=== PATIENT | female | born 1965 | race Caucasian/White ===

== ENCOUNTER 2017-06-08 16:09 | Inpatient (IN) | payer BC, OTHER ==
[~2017-06-08] VITALS: Ht 170.2 cm; Wt 58.1 kg
[2017-06-08] MEDS ORDERED: SODIUM CHLORIDE 0.9% 1000ML 1,000 ML IV ONE (16:22)
[2017-06-08] MEDS ORDERED: SODIUM CHLORIDE 0.9% 1000ML 1,000 ML IV STA (16:22)
--- NOTE | 2017-06-08 16:31 | EMERGENCY ROOM VISIT NOTE ---
History Report prepared by Paola: Cyril Yeboah Under the Supervision of: Dr. Sanchez Mcintyre M.D. First contact with patient: 16:12 Stated Complaint: MENTAL STATUS CHANGE History of Present Illness The patient is a 52 year old female with a history of mild anxiety and depression who presents to the Emergency Room via ambulance with complaints of worsening episodes of fevers that started yesterday. She says that she started coughing up green phlegm 2 days ago with burning urination, so she was seen in her primary care clinic and was started on Bactrim. The patient adds that she finished a round of a different antibiotic 5 days ago. She does note that for the past couple weeks, she has been having a sinus infection with occasional fevers. The patient states that she does not think that the Bactrim agrees with her, although the burning urination dissipated. She says that yesterday, she did not feel well and had a temperature of 102. The patient states that she went "crazy" and her "blood was boiling". She says that she started to feel better last night and this morning, but prior to arrival this morning, she had another episode where she had a high fever with a headache and nausea, and she adds that she had a "freak out". The patient notes that she had abnormal thoughts, including some bad thoughts that she would hurt herself or others. She says that she wanted to put "blood into the tub to cool it" and then bring the blood back inside her, and other thoughts including driving into somebody else or strangling her mother in the car. Currently, she says that she feels a bit better, and was given Tylenol prior to arrival. The patient states that she still has a mild headache, and is still coughing and nauseous, but the fever has dissipated. She says that her anxiety and depression is managed normally, but she has cut her thighs and wrists recently. She denies any vomiting, neck pain, rashes, or back pain. She says that she started taking Effexor a few months ago, and takes Ativan at night. Source of History: patient Onset: Yesterday Position: other (global - fevers) Timing: worsening, other (episodes) Associated Symptoms: + headache, + cough, + nausea, + urinary symptoms (but has since dissipated), No neck pain, No vomiting, No back pain, No rash Note: Associated symptoms: Episodes of "freaking out", with abnormal thoughts including hurting others. Review of Systems See HPI for pertinent positives & negatives. A total of 10 systems reviewed and were otherwise negative. Past Medical & Surgical Medical Problems: (1) Anxiety (2) Depression (3) Sepsis Old medical records were reviewed. Nurse's notes were reviewed and I agree with. Family History Unobtainable family history due to adoption Social History Alcohol Use: occasionally Marital Status: Housing Status: lives alone Occupation Status: employed Current/Historical Medications Scheduled Budesonide/Formoterol Fumarate (Symbicort 80/4.5 Inhaler), 2 PUFFS INH QAM Fluticasone Propionate (Nasal) (Flonase Allergy Relief), 1 SPRAY NA DAILY Lorazepam (Ativan), 0.5 MG PO QPM Metronidazole (Topical) (Metronidazole), 1 DOSE TOP DIRECTED Montelukast Sodium (Montelukast Sodium), 10 MG PO QPM Multivitamin (Multivitamin), 1 TAB PO DAILY Venlafaxine Hcl (Venlafaxine Extended Rel), 75 MG PO QAM Allergies Coded Allergies: Erythromycin (Unverified Allergy, Unknown, ANXIETY, 06/08/17) Sulfa Antibiotics (Unverified Allergy, Unknown, panic attack, 06/08/17) Physical Exam Vital Signs Date Time Temp Pulse Resp B/P (MAP) Pulse Ox O2 Delivery O2 Flow Rate FiO2 06/08/17 19:25 132/74 06/08/17 19:24 77 26 98 06/08/17 19:09 69 98 06/08/17 18:54 67 98 06/08/17 18:39 64 98 06/08/17 18:24 79 19 98 06/08/17 18:09 90 19 98 06/08/17 17:54 71 24 98 06/08/17 17:51 137/85 06/08/17 17:51 65 16 137/85 98 Room Air 06/08/17 17:24 76 12 98 06/08/17 17:09 76 99 06/08/17 16:39 90 23 99 06/08/17 16:24 92 23 98 06/08/17 16:15 95 06/08/17 16:13 37.5 94 18 137/79 97 Room Air 06/08/17 16:11 137/79 Physical Exam General: Well developed well nourished non ill appearing middle aged female in no acute distress, breathing comfortably on room air. Normal speech. Answers questions appropriately at this point. HEENT: Normal cephalic atraumatic. Pupils are equal round and reactive to light. Extraocular movements are intact. Oropharynx is pink with moist mucous membranes. No swelling of the mouth lips or tongue. Neck: Supple with a midline trachea. No meningeal signs or stiffness, no JVD or bruits. No Stridor. Negative Kernig and Brudzinski signs. Chest: Clear to auscultation bilaterally. No wheezes or rhonchi. No increased work of breathing. Heart: regular rate and rhythm. Abdomen: Soft nontender, nondistended without rebound guarding or rigidity. Extremities: No cyanosis clubbing or edema. No calf tenderness or assymetry Spine/Back. Non tender to palpation. No CVA tenderness Skin: Good turgor without rashes. Neurologic exam: Cranial nerves two through 12 are intact. Motor and sensation are intact and symmetrical throughout. GCS of 15. Medical Decision & Procedures ER Provider Diagnostic Interpretation: Radiology results as stated below per my review and radiologist interpretation: CT OF THE HEAD WITHOUT CONTRAST CLINICAL HISTORY: Mental status change. COMPARISON STUDY: No previous studies for comparison. TECHNIQUE: Helical axial images of the head were obtained without IV contrast. Automated exposure control was utilized for the study. A dose lowering technique was utilized adhering to the principles of ALARA. FINDINGS: No acute intracranial hemorrhage, midline shift or mass effect is present. Ventricular system is normal. Basilar cisterns are patent. There are no extra-axial collections. Haque-white differentiation is preserved. There are no findings to suggest acute dural sinus thrombosis or acute territorial infarct. Visualized portions of the sinuses and mastoid air cells are clear. There are no calvarial abnormalities. IMPRESSION: No acute intracranial findings. Electronically signed by: Bon Valles M.D. 06/08/2017 5:13 PM Dictated Date/Time: 06/08/2017 5:11 PM CHEST ONE VIEW PORTABLE CLINICAL HISTORY: CHEST PAIN dyspnea COMPARISON STUDY: None FINDINGS: Parenchymal infiltrate medial left base. Lungs otherwise appear clear. Diaphragms smooth. IMPRESSION: Focal parenchymal infiltrate medial left base. The above report was generated using voice recognition software. It may contain grammatical, syntax or spelling errors. Electronically signed by: Sherman King M.D. 06/08/2017 4:49 PM Dictated Date/Time: 06/08/2017 4:48 PM SINUSES-MAXILLOFACIAL W/O CT DOSE: HISTORY: Dyspnea sinusitis TECHNIQUE: Multiaxial CT images of the paranasal sinuses were performed and reformatted in the coronal plane without the use of contrast. A dose lowering technique was utilized adhering to the principles of ALARA. COMPARISON: None. FINDINGS: The frontal sinuses, ethmoid air cells, sphenoid sinuses, and bilateral maxillary antra are clear. The mastoid air cells are clear. The bilateral ostiomeatal units are patent. Hypertrophic change of the nasal turbinates is present. A component of these mild nasal occlusive change. The orbital margins are intact. IMPRESSION: Hypertrophic change of the nasal turbinates creating at least mild nasal occlusive change. Otherwise negative study. The above report was generated using voice recognition software. It may contain grammatical, syntax or spelling errors. Electronically signed by: Sherman King M.D. 06/08/2017 5:14 PM Dictated Date/Time: 06/08/2017 5:13 PM Laboratory Results 06/08/17 16:40 Red Blood Count 4.20, Mean Corpuscular Volume 95.2, Mean Corpuscular Hemoglobin 31.7, Mean Corpuscular Hemoglobin Concent 33.3, Mean Platelet Volume 10.7, Neutrophils (%) (Auto) 85.3, Lymphocytes (%) (Auto) 8.7, Monocytes (%) (Auto) 5.3, Eosinophils (%) (Auto) 0.3, Basophils (%) (Auto) 0.1, Neutrophils # (Auto) 11.52, Lymphocytes # (Auto) 1.17, Monocytes # (Auto) 0.71, Eosinophils # (Auto) 0.04, Basophils # (Auto) 0.02 06/08/17 16:40 Test 06/08/17 16:40 06/08/17 16:52 06/08/17 17:52 White Blood Count 13.50 K/uL (4.8-10.8) Red Blood Count 4.20 M/uL (4.2-5.4) Hemoglobin 13.3 g/dL (12.0-16.0) Hematocrit 40.0 % (37-47) Mean Corpuscular Volume 95.2 fL (80-100) Mean Corpuscular Hemoglobin 31.7 pg (25-34) Mean Corpuscular Hemoglobin Concent 33.3 g/dl (32-36) Platelet Count 254 K/uL (130-400) Mean Platelet Volume 10.7 fL (7.4-10.4) Neutrophils (%) (Auto) 85.3 % Lymphocytes (%) (Auto) 8.7 % Monocytes (%) (Auto) 5.3 % Eosinophils (%) (Auto) 0.3 % Basophils (%) (Auto) 0.1 % Neutrophils # (Auto) 11.52 K/uL (1.4-6.5) Lymphocytes # (Auto) 1.17 K/uL (1.2-3.4) Monocytes # (Auto) 0.71 K/uL (0.11-0.59) Eosinophils # (Auto) 0.04 K/uL (0-0.5) Basophils # (Auto) 0.02 K/uL (0-0.2) RDW Standard Deviation 43.4 fL (36.4-46.3) RDW Coefficient of Variation 12.5 % (11.5-14.5) Immature Granulocyte % (Auto) 0.3 % Immature Granulocyte # (Auto) 0.04 K/uL (0.00-0.02) Activated Partial Thromboplast Time 30.8 SECONDS (21.0-31.0) Partial Thromboplastin Ratio 1.2 Anion Gap 7.0 mmol/L (3-11) Est Creatinine Clear Calc Drug Dose 65.7 ml/min Estimated GFR () 82.0 Estimated GFR (Non- 70.7 BUN/Creatinine Ratio 6.2 (10-20) Calcium Level 9.0 mg/dl (8.5-10.1) Magnesium Level 2.0 mg/dl (1.8-2.4) Total Bilirubin 0.4 mg/dl (0.2-1) Direct Bilirubin 0.1 mg/dl (0-0.2) Aspartate Amino Transf (AST/SGOT) 17 U/L (15-37) Alanine Aminotransferase (ALT/SGPT) 26 U/L (12-78) Alkaline Phosphatase 80 U/L (45-117) Total Protein 7.1 gm/dl (6.4-8.2) Albumin 3.2 gm/dl (3.4-5.0) Lipase 148 U/L (73-393) Thyroid Stimulating Hormone (TSH) 0.934 uIu/ml (0.300-4.500) Human Chorionic Gonadotropin, Qual NEG (NEG) Lyme Disease IgG Antibody NEG (NEG) Lyme Disease IgM Antibody NEG (NEG) Bedside Lactic Acid Venous 2.38 mmol/L (0.90-1.70) Urine Color YELLOW Urine Appearance CLEAR (CLEAR) Urine pH >= 9.0 (4.5-7.5) Urine Specific [place] 1.015 (1.000-1.030) Urine Protein NEG (NEG) Urine Glucose (UA) NEG (NEG) Urine Ketones NEG (NEG) Urine Occult Blood NEG (NEG) Urine Nitrite NEG (NEG) Urine Bilirubin NEG (NEG) Urine Urobilinogen NEG (NEG) Urine Leukocyte Esterase NEG (NEG) Laboratory studies as stated above per my review. Medications Administered Medications (Trade) Dose Ordered Sig/Phyllis Route Start Time Stop Time Status Last Admin Dose Admin Sodium Chloride 1,000 ml @ 999 mls/hr Q1H1M STAT IV 06/08/17 16:22 06/08/17 17:22 DC 06/08/17 16:44 999 MLS/HR Sodium Chloride 1,000 ml @ 200 mls/hr Q5H ONCE IV 06/08/17 16:22 06/08/17 20:55 DC 06/08/17 17:51 200 MLS/HR Ceftriaxone Sodium (Rocephin Inj) 1 gm NOW STAT IV 06/08/17 18:46 06/08/17 18:47 DC 06/08/17 19:36 1 GM Azithromycin (Zithromax Tab) 500 mg NOW ONCE PO 06/08/17 19:00 06/08/17 19:01 DC 06/08/17 19:36 500 MG ECG Indication: altered mental status Rate (beats per minute): 83 Rhythm: normal sinus Findings: no acute ischemic change, no ectopy, other (normal intervals) Comparison ECG Date: no prior available ED Course 1612: Past medical records reviewed. The patient was evaluated in room B10, and a complete history and physical examination were performed. 1622: Ordered NSS 1000 ml @ 200 mls/hr IV, NSS 1000 ml @ 999 mls/hr IV. 1714: I reevaluated the patient and she says she is calm, and she regrets her behavior earlier. She has normal mentation. 184: Ordered Rocephin Inj 1 gm IV. 184: I reevaluated the patient and she is doing much better. The patient verbally expressed understanding and agreement of the treatment plan. The patient will be evaluated for further treatment. 185: I discussed the patient with Dr. Linda Soriano retort cooler - he will evaluate the patient for further treatment. 190: Ordered Zithromax Tab 500 mg PO. Medical Decision Differentials include, but are not limited to; sepsis, anxiety, UTI, meningitis , Lyme disease, medication side effect, electrolyte or metabolic abnormality. This patient comes in as described above. She was brought in by ambulance after having a fever and got anxious and possibly confused to the doctor's office. She feels much better now and says she is embarrassed about her behavior. She said she just got very anxious and feels better now that her temperatures down. She had a headache with a temperature but now has minimal headache. She looks well she is nontoxic and non-lethargic and has a Faizan Coma Score 15 and answers all questions appropriately of present. She's had no neck pain or stiffness. She has had a cough. She has also has some urinary symptoms of some mild sinus symptoms as well. IV access established and she was hydrated with IV normal saline and given a bolus and hourly rate. I did a CAT scan of her head, chest x-ray, CAT scan of her sinuses, multiple blood tests as well as urinalysis and culture. Her urinalysis does not suggest UTI with a culture pending. Blood cultures are drawn and are pending. Lactic acid was mildly elevated at just above 2. Chest x-ray shows infiltrate in the left base. She was given Rocephin 1 g IV and azithromycin 500 mg for community- acquired pneumonia coverage. She's had no recent hospitalizations. CAT scan of her head and sinuses were unremarkable, there is no acute sinus disease seen. While she's been here in the emergency department, she's remained stable and looks well. Given her elevated white count and lactic acid as well as pneumonia and this episode where she got anxious or confused, I do think she needs to be monitored. Again she looks well at present and there has nothing to suggest meningitis a do not think she needs an LP at this point. The patient will be admitted for further treatment and evaluation. I have consulted the [facility] hospitalist group. Head Trauma GCS Score: 15 Medication Reconcilliation Current Medication List: was personally reviewed by me Blood Pressure Screening Patient's blood pressure: Normal blood pressure Consults Time Called: 1849 Consulting Physician: Dr. Linda Soriano retort cooler Returned Call: [phone] I discussed the patient with Dr. Linda Soriano retort cooler - he will evaluate the patient for further treatment. Impression Primary Impression: PNA (pneumonia) Additional Impressions: Anxiety Sepsis Scribe Attestation The scribe's documentation has been prepared under my direction and personally reviewed by me in its entirety. I confirm that the note above accurately reflects all work, treatment, procedures, and medical decision making performed by me. Departure Information Dispostion Being Evaluated By Hospitalist Referrals Blanca Quintana D.O. (PCP) Problem Qualifiers Primary Impression: PNA (pneumonia) Aspiration pneumonia type: unspecified Laterality: unspecified laterality Lung location: unspecified part of lung
[2017-06-08] MEDS ORDERED: SYMIN/8045 INH (16:44)
[2017-06-08] MEDS ORDERED: MONT1TAB5 PO (16:44)
[2017-06-08] MEDS ORDERED: FLUT0.15 (16:44)
[2017-06-08] MEDS ORDERED: LORA-741 PO (16:44)
[2017-06-08] MEDS ORDERED: VENL75CA73 PO (16:44)
[2017-06-08] MEDS ORDERED: METR0.75 TOP (16:45)
[2017-06-08] MEDS ORDERED: MULT-506 PO (16:45)
--- NOTE | 2017-06-08 16:51 | DIAGNOSTIC IMAGING REPORT ---
CHEST ONE VIEW PORTABLE CLINICAL HISTORY: CHEST PAIN dyspnea COMPARISON STUDY: None FINDINGS: Parenchymal infiltrate medial left base. Lungs otherwise appear clear. Diaphragms smooth. IMPRESSION: Focal parenchymal infiltrate medial left base. The above report was generated using voice recognition software. It may contain grammatical, syntax or spelling errors. Electronically signed by: Sherman King M.D. 06/08/2017 4:49 PM Dictated Date/Time: 06/08/2017 4:48 PM
--- NOTE | 2017-06-08 17:15 | DIAGNOSTIC IMAGING REPORT ---
CT OF THE HEAD WITHOUT CONTRAST CLINICAL HISTORY: Mental status change. COMPARISON STUDY: No previous studies for comparison. TECHNIQUE: Helical axial images of the head were obtained without IV contrast. Automated exposure control was utilized for the study. A dose lowering technique was utilized adhering to the principles of ALARA. FINDINGS: No acute intracranial hemorrhage, midline shift or mass effect is present. Ventricular system is normal. Basilar cisterns are patent. There are no extra-axial collections. Haque-white differentiation is preserved. There are no findings to suggest acute dural sinus thrombosis or acute territorial infarct. Visualized portions of the sinuses and mastoid air cells are clear. There are no calvarial abnormalities. IMPRESSION: No acute intracranial findings. Electronically signed by: Bon Valles M.D. 06/08/2017 5:13 PM Dictated Date/Time: 06/08/2017 5:11 PM
--- NOTE | 2017-06-08 17:16 | DIAGNOSTIC IMAGING REPORT ---
SINUSES-MAXILLOFACIAL W/O CT DOSE: HISTORY: Dyspnea sinusitis TECHNIQUE: Multiaxial CT images of the paranasal sinuses were performed and reformatted in the coronal plane without the use of contrast. A dose lowering technique was utilized adhering to the principles of ALARA. COMPARISON: None. FINDINGS: The frontal sinuses, ethmoid air cells, sphenoid sinuses, and bilateral maxillary antra are clear. The mastoid air cells are clear. The bilateral ostiomeatal units are patent. Hypertrophic change of the nasal turbinates is present. A component of these mild nasal occlusive change. The orbital margins are intact. IMPRESSION: Hypertrophic change of the nasal turbinates creating at least mild nasal occlusive change. Otherwise negative study. The above report was generated using voice recognition software. It may contain grammatical, syntax or spelling errors. Electronically signed by: Sherman King M.D. 06/08/2017 5:14 PM Dictated Date/Time: 06/08/2017 5:13 PM
[2017-06-08 17:25] LABS: BASO % 0.1 %; BASO ABS # 0.02 K/uL (0-0.2); COMPLETE YES; EOS % 0.3 %; IG% 0.3 %; LYMPH % 8.7 %; LYMPH ABS # 1.17 K/uL (1.2-3.4); MEAN CELL VOLUME 95.2 fL (80-100); MEAN CORPUSCULAR HEMOGLOBIN 31.7 pg (25-34); MEAN CORPUSCULAR HGB CONC 33.3 g/dl (32-36); MEAN PLATELET VOLUME 10.7 fL (7.4-10.4); MONO % 5.3 %; NEUT % 85.3 %; PLATELET COUNT 254 K/uL (130-400)
[2017-06-08 17:45] LABS: BUN/CREATININE RATIO 6.2 (10-20); CREATININE 0.94 mg/dl (0.60-1.20); POTASSIUM 3.7 mmol/L (3.5-5.1)
[2017-06-08 17:53] LABS: PREG INTERNAL NEGATIVE QC NEG CLEAR BACKGROUND; PREG INTERNAL POSITIVE QC POS CONTROL LINE
[2017-06-08 17:56] LABS: THYROID STIMULATING HORMONE 0.934 uIu/ml (0.300-4.500)
[2017-06-08 18:05] LABS: URINE APPEARANCE CLEAR (CLEAR); URINE BILIRUBIN NEG (NEG); URINE COLOR YELLOW; URINE NITRITE NEG (NEG); URINE PH >= 9.0 (4.5-7.5); URINE SPECIFIC GRAVITY 1.015 (1.000-1.030); UROBILINOGEN NEG (NEG)
[2017-06-08 18:23] LABS: MANUAL MICROSCOPIC REQUIRED? NO; REVIEW REQ? NO
[2017-06-08 18:25] LABS: LYME DISEASE AB IGG NEG (NEG); LYME DISEASE AB IGM NEG (NEG)
[2017-06-08] MEDS ORDERED: CEFTRIAXONE SOD INJ 1 GM ADDVIAL IV STA (18:46)
[2017-06-08] MEDS ORDERED: AZITHROMYCIN 250 MG TAB PO ONE (19:00)
[2017-06-08 19:51] LABS: PARTIAL THROMBOPLASTIN RATIO 1.2
[2017-06-08] MEDS ORDERED: PNEUMOCOCCAL POLYSACCHARIDES 25 MCG/0.5 ML VIAL/SYR IM. ONE (20:00)
[2017-06-08] MEDS ORDERED: LORAZEPAM 2 MG/ML 1 ML VIAL IV PRN (20:00)
[2017-06-08] MEDS ORDERED: TRAMADOL HCL 50 MG TAB PO PRN (20:00)
[2017-06-08] MEDS ORDERED: ALBUT/IPRATROP 3MG/0.5MG NEB 3 ML VIAL INH PRN (20:00)
[2017-06-08] MEDS ORDERED: ONDANSETRON INJ 2 MG/ML 2 ML VIAL IV PRN (20:00)
--- NOTE | 2017-06-08 20:05 | History and Physical ---
History & Physical Date & Time of Service: Jun 08, 2017 at 20:04 Chief Complaint: Mental Status Change Primary Care Physician: Blanca Qiuntana D.O. History of Present Illness Source: patient, clinic records 3 weeks ago patient noted sinus congestion symptoms related to productive of yellow sputum. No response to outpatient Z-Norbert. At about the same time patient also noted dysuria symptoms initially treated with Macrobid. Worsening symptoms noted a few days ago. Seen at [facility]. Prescribed Bactrim for sinusitis and UTI. Outpatient urine cultures multiple deandre. Some improvement in symptoms initially. However this morning patient felt crappy again. Denies chest pain, admits to shortness of breath . Cough symptoms productive of yellow sputum. Denies aspiration Febrile at 102F. Increased agitation. At the emergency room, patient received ceftriaxone and azithromycin for pneumonia. 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) Immunizations History of Pneumococcal: No Allergies Coded Allergies: Erythromycin (Unverified Allergy, Unknown, ANXIETY, 06/08/17) Sulfa Antibiotics (Unverified Allergy, Unknown, panic attack, 06/08/17) Home Medications Scheduled Budesonide/Formoterol Fumarate (Symbicort 80/4.5 Inhaler), 2 PUFFS INH QAM Fluticasone Propionate (Nasal) (Flonase Allergy Relief), 1 SPRAY NA DAILY Lorazepam (Ativan), 0.5 MG PO QPM Metronidazole (Topical) (Metronidazole), 1 DOSE TOP DIRECTED Montelukast Sodium (Montelukast Sodium), 10 MG PO QPM Multivitamin (Multivitamin), 1 TAB PO DAILY Venlafaxine Hcl (Venlafaxine Extended Rel), 75 MG PO QAM Review of Systems Chronic abdominal pain As per history of present illness, all other ROS negative. Physical Exam Vital Signs Date Time Temp Pulse Resp B/P (MAP) Pulse Ox O2 Delivery O2 Flow Rate FiO2 06/08/17 19:30 137/90 06/08/17 19:25 132/74 06/08/17 19:24 77 26 98 06/08/17 19:09 69 98 7/20/17 18:54 67 98 06/08/17 18:39 64 98 06/08/17 18:24 79 19 98 06/08/17 18:09 90 19 98 06/08/17 17:54 71 24 98 06/08/17 17:51 137/85 06/08/17 17:51 65 16 137/85 98 Room Air 06/08/17 17:24 76 12 98 06/08/17 17:09 76 99 06/08/17 16:39 90 23 99 06/08/17 16:24 92 23 98 06/08/17 16:15 95 06/08/17 16:13 37.5 94 18 137/79 97 Room Air 06/08/17 16:11 137/79 General Appearance: + pertinent finding (slightly anxious) Head: normocephalic Eyes: + pertinent finding (pink palpebral conjunctivae, dry buccal mucosa) Respiratory/Chest: + decreased breath sounds Cardiovascular: regular rate, rhythm Abdomen/GI: + pertinent finding (chronic abdominal tenderness) Extremities/Musculoskelatal: non-tender Neurologic/Psych: alert Skin: normal color Diagnostics Laboratory Results Results Past 24 Hours Test 06/08/17 16:40 06/08/17 16:52 06/08/17 17:52 06/08/17 19:26 Range/Units White Blood Count 13.50 4.8-10.8 K/uL Red Blood Count 4.20 4.2-5.4 M/uL Hemoglobin 13.3 12.0-16.0 g/dL Hematocrit 40.0 37-47 % Mean Corpuscular Volume 95.2 80-100 fL Mean Corpuscular Hemoglobin 31.7 25-34 pg Mean Corpuscular Hemoglobin Concent 33.3 32-36 g/dl Platelet Count 254 130-400 K/uL Mean Platelet Volume 10.7 7.4-10.4 fL Neutrophils (%) (Auto) 85.3 % Lymphocytes (%) (Auto) 8.7 % Monocytes (%) (Auto) 5.3 % Eosinophils (%) (Auto) 0.3 % Basophils (%) (Auto) 0.1 % Neutrophils # (Auto) 11.52 1.4-6.5 K/uL Lymphocytes # (Auto) 1.17 1.2-3.4 K/uL Monocytes # (Auto) 0.71 0.11-0.59 K/uL Eosinophils # (Auto) 0.04 0-0.5 K/uL Basophils # (Auto) 0.02 0-0.2 K/uL RDW Standard Deviation 43.4 36.4-46.3 fL RDW Coefficient of Variation 12.5 11.5-14.5 % Immature Granulocyte % (Auto) 0.3 % Immature Granulocyte # (Auto) 0.04 0.00-0.02 K/uL Activated Partial Thromboplast Time 30.8 21.0-31.0 SECONDS Partial Thromboplastin Ratio 1.2 Sodium Level 139 136-145 mmol/L Potassium Level 3.7 3.5-5.1 mmol/L Chloride Level 106 98-107 mmol/L Carbon Dioxide Level 26 21-32 mmol/L Anion Gap 7.0 3-11 mmol/L Blood Urea Nitrogen 6 7-18 mg/dl Creatinine 0.94 0.60-1.20 mg/dl Est Creatinine Clear Calc Drug Dose 65.7 ml/min Estimated GFR () 82.0 Estimated GFR (Non- 70.7 BUN/Creatinine Ratio 6.2 10-20 Random Glucose 123 70-99 mg/dl Calcium Level 9.0 8.5-10.1 mg/dl Total Bilirubin 0.4 0.2-1 mg/dl Direct Bilirubin 0.1 0-0.2 mg/dl Aspartate Amino Transf (AST/SGOT) 17 15-37 U/L Alanine Aminotransferase (ALT/SGPT) 26 12-78 U/L Alkaline Phosphatase 80 45-117 U/L Total Protein 7.1 6.4-8.2 gm/dl Albumin 3.2 3.4-5.0 gm/dl Lipase 148 73-393 U/L Thyroid Stimulating Hormone (TSH) 0.934 0.300-4.500 uIu/ml Human Chorionic Gonadotropin, Qual NEG NEG Lyme Disease IgG Antibody NEG NEG Lyme Disease IgM Antibody NEG NEG Bedside Lactic Acid Venous 2.38 0.90-1.70 mmol/L Urine Color YELLOW Urine Appearance CLEAR CLEAR Urine pH >= 9.0 4.5-7.5 Urine Specific [place] 1.015 1.000-1.030 Urine Protein NEG NEG Urine Glucose (UA) NEG NEG Urine Ketones NEG NEG Urine Occult Blood NEG NEG Urine Nitrite NEG NEG Urine Bilirubin NEG NEG Urine Urobilinogen NEG NEG Urine Leukocyte Esterase NEG NEG Microbiology Results 06/08/17 Blood Culture, Received Pending 06/08/17 Blood Culture, Received Pending 06/08/17 Urine Culture, Received Pending other (infiltrate left) EKG As per my interpretation: Normal sinus rhythm no ischemia Impression Assessment and Plan AP Sepsis secondary to community-acquired pneumonia Failed outpatient treatment asthma, well controlled, not in acute exacerbation Past tobacco abuse Mood/anxiety disorder patient admits to being stressed out earlier during illness but is currently much better GMF Follow lactic acid, IV fluid Cultures, Levaquin Pneumovax prior to discharge DVT prophylaxis Lovenox subcutaneous Full code VTE Prophylaxis VTE Risk Assessment Done? Y/N: Yes Risk Level: Moderate
[2017-06-08] MEDS ORDERED: PNEUMOCOCCAL ADMINISTRATION CHARGE ONE (20:15)
[2017-06-08 20:50] VITALS: O2SAT 99
[2017-06-08] MEDS ORDERED: LORAZEPAM INJ 0.5 MG in SYRINGE 0.75 ML IV PRN (21:00)
[2017-06-08] MEDS ORDERED: NSS + 20MEQ KCL 1000ML 1,000 ML IV ONE (21:00)
[2017-06-08 21:05] VITALS: Ht 170.2 cm; Wt 58.1 kg
[2017-06-08 21:15] VITALS: BP 124/81; PULSE 67; TEMP 37.8; O2SAT 97
[2017-06-08] MEDS ORDERED: ACETAMINOPHEN 325 MG TAB PO ONE (21:40)
[2017-06-08] MEDS: ENOXAPARIN 40 MG/0.4 ML SYR SQ SCH (22:14)
[2017-06-08] MEDS: MONTELUKAST SOD 10 MG TAB PO SCH (22:14)
[2017-06-08] MEDS: LORAZEPAM 0.5 MG TAB PO PRN (22:15)
[2017-06-09 05:00] VITALS: TEMP 37.1
[2017-06-09] MEDS: ACETAMINOPHEN 325 MG TAB PO PRN ×3 (06:28→23:20)
[2017-06-09 07:25] LABS: BASO % 0.1 %; BASO ABS # 0.01 K/uL (0-0.2); COMPLETE YES; EOS % 0.8 %; HEMATOCRIT 35.2 % (37-47); IG% 0.1 %; LYMPH % 20.2 %; LYMPH ABS # 1.54 K/uL (1.2-3.4); MEAN CELL VOLUME 96.2 fL (80-100); MEAN CORPUSCULAR HEMOGLOBIN 31.7 pg (25-34); MEAN PLATELET VOLUME 10.6 fL (7.4-10.4); MONO % 9.4 %; NEUT % 69.4 %; PLATELET COUNT 217 K/uL (130-400); RED BLOOD COUNT 3.66 M/uL (4.2-5.4); WHITE BLOOD COUNT 7.64 K/uL (4.8-10.8)
[2017-06-09 07:50] VITALS: BP 120/73; PULSE 76; TEMP 37.1; O2SAT 97
[2017-06-09] MEDS: FLUTICASONE PROPIONATE NA SPR 16 GM BTL SCH (07:51)
[2017-06-09] MEDS: VENLAFAXINE HCL XR 75 MG CAPXR PO SCH (07:51)
[2017-06-09] MEDS: BUDESONIDE/FORMOTEROL FUMARATE 80/4.5 60 PUFFS/INHALER INH SCH (07:51)
[2017-06-09] MEDS: LEVOFLOXACIN CONSULT ACTIVE SCH (09:00)
[2017-06-09] MEDS: LEVOFLOXACIN 750 MG TAB PO SCH (11:04)
--- NOTE | 2017-06-09 13:24 | Progress Note ---
Internal Med Progress Note Date of Service: Jun 09, 2017. Provider Documentation: SUBJECTIVE: Seen and examined at bedside. States feeling lot better today Has Intermittent cough. Denies chest pain, SOB, fever, chills. Headache resolved OBJECTIVE: Vital Signs-as noted below Physical Exam: General Appearance:Moderately built and nourished, no apparent distress Head: normocephalic, Atraumatic Eyes: normal inspection, EOMI, PERRL Neck: supple, Trachea midline Respiratory/Chest: Normal breath sounds, CTA Cardiovascular: S1, S2, No murmur Abdomen/GI:Soft, Non tender, Bowel sounds present Extremities/Musculoskelatal:normal inspection, no edema Neurologic/Psych:grossly no focal neurological deficits Skin: normal color, warm Lab data as noted below. ASSESSMENT & PLAN: Sepsis Community-acquired pneumonia Failed outpatient treatment S/P IV fluids Lactate:wnl Continue IV Levaquin Follow blood cultures Urine culture: negative H/O Asthma No signs of acute exacerbation Continue home meds Past tobacco abuse Stable Mood/anxiety disorder Stable Continue home meds DVT Px: Lovenox SQ Code Status: Full code Vital Signs: Date Time Temp Pulse Resp B/P (MAP) Pulse Ox O2 Delivery O2 Flow Rate FiO2 06/09/17 08:00 Room Air 06/09/17 07:50 37.1 76 16 120/73 (89) 97 Room Air 06/09/17 05:00 37.1 06/09/17 00:00 Room Air 06/08/17 21:15 37.8 67 18 124/81 (95) 97 Room Air 06/08/17 21:05 Room Air 06/08/17 20:50 98 18 115/82 99 Room Air 06/08/17 20:05 80 13 98 06/08/17 20:01 122/74 06/08/17 19:50 84 22 99 06/08/17 19:35 79 19 98 06/08/17 19:30 137/90 06/08/17 19:25 132/74 06/08/17 19:24 77 26 98 06/08/17 19:09 69 98 06/08/17 18:54 67 98 06/08/17 18:39 64 98 06/08/17 18:24 79 19 98 06/08/17 18:09 90 19 98 06/08/17 17:54 71 24 98 06/08/17 17:51 137/85 06/08/17 17:51 65 16 137/85 98 Room Air 06/08/17 17:24 76 12 98 06/08/17 17:09 76 99 06/08/17 16:39 90 23 99 06/08/17 16:24 92 23 98 06/08/17 16:15 95 06/08/17 16:13 37.5 94 18 137/79 97 Room Air 06/08/17 16:11 137/79 Lab Results: Results Past 24 Hours Test 06/08/17 16:40 06/08/17 16:52 06/08/17 17:52 06/08/17 20:13 Range/Units White Blood Count 13.50 4.8-10.8 K/uL Red Blood Count 4.20 4.2-5.4 M/uL Hemoglobin 13.3 12.0-16.0 g/dL Hematocrit 40.0 37-47 % Mean Corpuscular Volume 95.2 80-100 fL Mean Corpuscular Hemoglobin 31.7 25-34 pg Mean Corpuscular Hemoglobin Concent 33.3 32-36 g/dl Platelet Count 254 130-400 K/uL Mean Platelet Volume 10.7 7.4-10.4 fL Neutrophils (%) (Auto) 85.3 % Lymphocytes (%) (Auto) 8.7 % Monocytes (%) (Auto) 5.3 % Eosinophils (%) (Auto) 0.3 % Basophils (%) (Auto) 0.1 % Neutrophils # (Auto) 11.52 1.4-6.5 K/uL Lymphocytes # (Auto) 1.17 1.2-3.4 K/uL Monocytes # (Auto) 0.71 0.11-0.59 K/uL Eosinophils # (Auto) 0.04 0-0.5 K/uL Basophils # (Auto) 0.02 0-0.2 K/uL RDW Standard Deviation 43.4 36.4-46.3 fL RDW Coefficient of Variation 12.5 11.5-14.5 % Immature Granulocyte % (Auto) 0.3 % Immature Granulocyte # (Auto) 0.04 0.00-0.02 K/uL Activated Partial Thromboplast Time 30.8 21.0-31.0 SECONDS Partial Thromboplastin Ratio 1.2 Sodium Level 139 136-145 mmol/L Potassium Level 3.7 3.5-5.1 mmol/L Chloride Level 106 98-107 mmol/L Carbon Dioxide Level 26 21-32 mmol/L Anion Gap 7.0 3-11 mmol/L Blood Urea Nitrogen 6 7-18 mg/dl Creatinine 0.94 0.60-1.20 mg/dl Est Creatinine Clear Calc Drug Dose 65.7 ml/min Estimated GFR () 82.0 Estimated GFR (Non- 70.7 BUN/Creatinine Ratio 6.2 10-20 Random Glucose 123 70-99 mg/dl Calcium Level 9.0 8.5-10.1 mg/dl Magnesium Level 2.0 1.8-2.4 mg/dl Total Bilirubin 0.4 0.2-1 mg/dl Direct Bilirubin 0.1 0-0.2 mg/dl Aspartate Amino Transf (AST/SGOT) 17 15-37 U/L Alanine Aminotransferase (ALT/SGPT) 26 12-78 U/L Alkaline Phosphatase 80 45-117 U/L Total Protein 7.1 6.4-8.2 gm/dl Albumin 3.2 3.4-5.0 gm/dl Lipase 148 73-393 U/L Thyroid Stimulating Hormone (TSH) 0.934 0.300-4.500 uIu/ml Human Chorionic Gonadotropin, Qual NEG NEG Lyme Disease IgG Antibody NEG NEG Lyme Disease IgM Antibody NEG NEG Bedside Lactic Acid Venous 2.38 0.90-1.70 mmol/L Urine Color YELLOW Urine Appearance CLEAR CLEAR Urine pH >= 9.0 4.5-7.5 Urine Specific [place] 1.015 1.000-1.030 Urine Protein NEG NEG Urine Glucose (UA) NEG NEG Urine Ketones NEG NEG Urine Occult Blood NEG NEG Urine Nitrite NEG NEG Urine Bilirubin NEG NEG Urine Urobilinogen NEG NEG Urine Leukocyte Esterase NEG NEG Lactic Acid Level 1.3 0.4-2.0 mmol/L Test 06/09/17 06:35 Range/Units White Blood Count 7.64 4.8-10.8 K/uL Red Blood Count 3.66 4.2-5.4 M/uL Hemoglobin 11.6 12.0-16.0 g/dL Hematocrit 35.2 37-47 % Mean Corpuscular Volume 96.2 80-100 fL Mean Corpuscular Hemoglobin 31.7 25-34 pg Mean Corpuscular Hemoglobin Concent 33.0 32-36 g/dl Platelet Count 217 130-400 K/uL Mean Platelet Volume 10.6 7.4-10.4 fL Neutrophils (%) (Auto) 69.4 % Lymphocytes (%) (Auto) 20.2 % Monocytes (%) (Auto) 9.4 % Eosinophils (%) (Auto) 0.8 % Basophils (%) (Auto) 0.1 % Neutrophils # (Auto) 5.30 1.4-6.5 K/uL Lymphocytes # (Auto) 1.54 1.2-3.4 K/uL Monocytes # (Auto) 0.72 0.11-0.59 K/uL Eosinophils # (Auto) 0.06 0-0.5 K/uL Basophils # (Auto) 0.01 0-0.2 K/uL RDW Standard Deviation 45.1 36.4-46.3 fL RDW Coefficient of Variation 12.8 11.5-14.5 % Immature Granulocyte % (Auto) 0.1 % Immature Granulocyte # (Auto) 0.01 0.00-0.02 K/uL Microbiology Results 06/08/17 Blood Culture, Received Pending 06/08/17 Blood Culture, Received Pending 06/08/17 Urine Culture - Preliminary, Resulted NO GROWTH - LESS THAN 1,000 COLONIES/...
[2017-06-09 15:03] VITALS: BP 124/79; PULSE 71; TEMP 36.9; O2SAT 96
[2017-06-09] MEDS: MONTELUKAST SOD 10 MG TAB PO SCH (21:33)
[2017-06-09] MEDS: ENOXAPARIN 40 MG/0.4 ML SYR SQ SCH (21:34)
[2017-06-09] MEDS: LORAZEPAM 0.5 MG TAB PO PRN (21:39)
[2017-06-09 23:16] VITALS: BP 132/86; PULSE 62; TEMP 37.3; O2SAT 99
[2017-06-10 07:30] LABS: BASO % 0.5 %; BASO ABS # 0.03 K/uL (0-0.2); COMPLETE YES; EOS % 1.2 %; HEMATOCRIT 39.6 % (37-47); IG% 0.3 %; LYMPH % 26.5 %; MEAN CELL VOLUME 95.4 fL (80-100); MEAN CORPUSCULAR HEMOGLOBIN 31.6 pg (25-34); MEAN CORPUSCULAR HGB CONC 33.1 g/dl (32-36); MEAN PLATELET VOLUME 10.1 fL (7.4-10.4); MONO % 9.8 %; NEUT % 61.7 %; PLATELET COUNT 267 K/uL (130-400); RED BLOOD COUNT 4.15 M/uL (4.2-5.4); WHITE BLOOD COUNT 6.41 K/uL (4.8-10.8)
[2017-06-10] MEDS: BUDESONIDE/FORMOTEROL FUMARATE 80/4.5 60 PUFFS/INHALER INH SCH (07:43)
[2017-06-10] MEDS: LEVOFLOXACIN CONSULT ACTIVE SCH (07:43)
[2017-06-10] MEDS: FLUTICASONE PROPIONATE NA SPR 16 GM BTL SCH (07:44)
[2017-06-10] MEDS: VENLAFAXINE HCL XR 75 MG CAPXR PO SCH (07:44)
[2017-06-10] MEDS: ACETAMINOPHEN 325 MG TAB PO PRN ×2 (07:45→13:14)
[2017-06-10 07:48] VITALS: BP 126/77; PULSE 67; TEMP 36.7; O2SAT 97
[2017-06-10 07:57] LABS: BUN/CREATININE RATIO 9.9 (10-20); CALCIUM 9.3 mg/dl (8.5-10.1); CREATININE 0.78 mg/dl (0.60-1.20); POTASSIUM 3.9 mmol/L (3.5-5.1)
[2017-06-10] MEDS: LEVOFLOXACIN 750 MG TAB PO SCH (11:54)
--- NOTE | 2017-06-10 12:24 | Progress Note ---
Internal Med Progress Note Date of Service: Jun 10, 2017. Provider Documentation: SUBJECTIVE: Seen and examined at bedside. Doing well. Has intermittent dry cough Denies chest pain, SOB, fever, chills. No new complaints. OBJECTIVE: Vital Signs-as noted below Physical Exam: General Appearance:Moderately built and nourished, no apparent distress Head: normocephalic, Atraumatic Eyes: normal inspection, EOMI, PERRL Neck: supple, Trachea midline Respiratory/Chest: Normal breath sounds, CTA Cardiovascular: S1, S2, No murmur Abdomen/GI:Soft, Non tender, Bowel sounds present Extremities/Musculoskelatal:normal inspection, no edema Neurologic/Psych:grossly no focal neurological deficits Skin: normal color, warm Lab data as noted below. ASSESSMENT & PLAN: Sepsis Community-acquired pneumonia Failed outpatient treatment S/P IV fluids Lactate:wnl Continue IV Levaquin Day #2 blood cultures: Negative Urine culture: negative H/O Asthma No signs of acute exacerbation Continue home meds Past tobacco abuse Stable Mood/anxiety disorder Stable Continue home meds DVT Px: Lovenox SQ Code Status: Full code Follow up with on 06/15/17 at 12:50pm Complete the antibiotic course as prescribed Seek immediate medical attention if your symptoms reoccur or worsen Vital Signs: Date Time Temp Pulse Resp B/P (MAP) Pulse Ox O2 Delivery O2 Flow Rate FiO2 06/10/17 08:00 Room Air 06/10/17 07:48 36.7 67 16 126/77 (93) 97 Room Air 06/10/17 00:30 Room Air 06/09/17 23:16 37.3 62 18 132/86 (101) 99 Room Air 06/09/17 16:00 Room Air 06/09/17 15:03 36.9 71 16 124/79 (94) 96 Room Air Lab Results: Results Past 24 Hours Test 06/10/17 07:17 Range/Units White Blood Count 6.41 4.8-10.8 K/uL Red Blood Count 4.15 4.2-5.4 M/uL Hemoglobin 13.1 12.0-16.0 g/dL Hematocrit 39.6 37-47 % Mean Corpuscular Volume 95.4 80-100 fL Mean Corpuscular Hemoglobin 31.6 25-34 pg Mean Corpuscular Hemoglobin Concent 33.1 32-36 g/dl Platelet Count 267 130-400 K/uL Mean Platelet Volume 10.1 7.4-10.4 fL Neutrophils (%) (Auto) 61.7 % Lymphocytes (%) (Auto) 26.5 % Monocytes (%) (Auto) 9.8 % Eosinophils (%) (Auto) 1.2 % Basophils (%) (Auto) 0.5 % Neutrophils # (Auto) 3.95 1.4-6.5 K/uL Lymphocytes # (Auto) 1.70 1.2-3.4 K/uL Monocytes # (Auto) 0.63 0.11-0.59 K/uL Eosinophils # (Auto) 0.08 0-0.5 K/uL Basophils # (Auto) 0.03 0-0.2 K/uL RDW Standard Deviation 44.3 36.4-46.3 fL RDW Coefficient of Variation 12.6 11.5-14.5 % Immature Granulocyte % (Auto) 0.3 % Immature Granulocyte # (Auto) 0.02 0.00-0.02 K/uL Sodium Level 142 136-145 mmol/L Potassium Level 3.9 3.5-5.1 mmol/L Chloride Level 106 98-107 mmol/L Carbon Dioxide Level 29 21-32 mmol/L Anion Gap 7.0 3-11 mmol/L Blood Urea Nitrogen 8 7-18 mg/dl Creatinine 0.78 0.60-1.20 mg/dl Est Creatinine Clear Calc Drug Dose 79.1 ml/min Estimated GFR () 102.7 Estimated GFR (Non- 88.6 BUN/Creatinine Ratio 9.9 10-20 Random Glucose 91 70-99 mg/dl Calcium Level 9.3 8.5-10.1 mg/dl
[2017-06-10] MEDS ORDERED: LVQ750 PO (12:26)
--- NOTE | 2017-06-10 12:28 | Discharge Summary ---
Discharge Summary Date of Service Jun 10, 2017. Discharge Summary Admission Date: Jun 08, 2017 at 19:27 Discharge Date: Jun 10, 2017 Discharge Disposition: Home Principal Diagnosis: Community Acquired Pneumonia Procedures: CT head; No acute intracranial findings. Sinus CT: Hypertrophic change of the nasal turbinates creating at least mild nasal occlusive change. Otherwise negative study. CXR: Focal parenchymal infiltrate medial left base. Consultations: None Pending Studies/Follow-Up: Follow up with on 06/15/17 at 12:50pm Complete the antibiotic course as prescribed Seek immediate medical attention if your symptoms reoccur or worsen Medication Reconciliation New Medications: Levofloxacin (Levofloxacin) 750 Mg Tab 750 MG PO DAILY@11 for 5 Days, #5 TAB Continued Medications: Budesonide/Formoterol Fumarate (Symbicort 80/4.5 Inhaler) Aero 2 PUFFS INH QAM, INHALER Fluticasone Propionate (Nasal) (Flonase Allergy Relief) 50 Mcg/Act Spr 1 SPRAY NA DAILY Lorazepam (Ativan) 0.5 Mg Tab 0.5 MG PO QPM, TAB Metronidazole (Topical) (Metronidazole) 0.75 % Lot 1 DOSE TOP DIRECTED Montelukast Sodium (Montelukast Sodium) 10 Mg Tab 10 MG PO QPM, TAB 3 Refills Multivitamin (Multivitamin) Tab 1 TAB PO DAILY, TAB Venlafaxine Hcl (Venlafaxine Extended Rel) 75 Mg Cap 75 MG PO QAM, CAP Admission Information HPI (per Admitting provider): 3 weeks ago patient noted sinus congestion symptoms related to productive of yellow sputum. No response to outpatient Z-Norbert. At about the same time patient also noted dysuria symptoms initially treated with Macrobid. Worsening symptoms noted a few days ago. Seen at [facility]. Prescribed Bactrim for sinusitis and UTI. Outpatient urine cultures multiple deandre. Some improvement in symptoms initially. However this morning patient felt crappy again. Denies chest pain, admits to shortness of breath . Cough symptoms productive of yellow sputum. Denies aspiration Febrile at 102F. Increased agitation. At the emergency room, patient received ceftriaxone and azithromycin for pneumonia. Patient currently feeling better Physical Exam (per Admitting): General Appearance: + pertinent finding (slightly anxious) Head: normocephalic Eyes: + pertinent finding (pink palpebral conjunctivae, dry buccal mucosa) Respiratory/Chest: + decreased breath sounds Cardiovascular: regular rate, rhythm Abdomen/GI: + pertinent finding (chronic abdominal tenderness) Extremities/Musculoskelatal: non-tender Neurologic/Psych: alert Skin: normal color Hospital Course Sepsis Community-acquired pneumonia Failed outpatient treatment S/P IV fluids Lactate:wnl Continue IV Levaquin Day #2 blood cultures: Negative Urine culture: negative H/O Asthma No signs of acute exacerbation Continue home meds Past tobacco abuse Stable Mood/anxiety disorder Stable Continue home meds DVT Px: Lovenox SQ Code Status: Full code Follow up with on 06/15/17 at 12:50pm Complete the antibiotic course as prescribed Seek immediate medical attention if your symptoms reoccur or worsen Total time spent on discharge = 32 minutes This includes examination of the patient, discharge planning, medication reconciliation, and communication with other providers. Discharge Instructions Discharge Instructions Date of Service Jun 10, 2017. Admission Reason for Admission: Sepsis Discharge Discharge Diagnosis / Problem: Community Acquired Pneumonia Discharge Goals Goal(s): Decrease discomfort, Improve function Activity Recommendations Activity Limitations: resume your previous activity Exercise/Sports Limitations: as tolerated . Instructions / Follow-Up Instructions / Follow-Up Follow up with on 06/15/17 at 12:50pm Complete the antibiotic course as prescribed Seek immediate medical attention if your symptoms reoccur or worsen Current Hospital Diet Patient's current hospital diet: Regular Diet Discharge Diet Recommended Diet: Regular Diet Pending Studies Studies pending at discharge: no Medical Emergencies . Who to Call and When: Medical Emergencies: If at any time you feel your situation is an emergency, please call 911 immediately. . Non-Emergent Contact Non-Emergency issues call your: Primary Care Provider Call Non-Emergent contact if: you have a fever, your pain is not controlled, your pain is worsening, your pain is unusual for you, you have any medication questions If your symptoms reoccur or worsen . . "Provider Documentation" section prepared by Minh Moon. . VTE Core Measure Inpt VTE Proph given/why not?: Enoxaparin (Lovenox)SQ
[2017-06-10 13:01] VITALS: BP 126/77; PULSE 67; TEMP 36.7; O2SAT 97
== END 2017-06-10 13:15 | disposition home or self-care (01) | DRG 871 ==
LOC: EDBD 16:09 → C.EDB 16:10 → C.MS2W 19:27 → ENRESERV 19:40
PROVIDERS: ADMIT Internal Medicine; ATTEND Internal Medicine
DX: A41.9 Sepsis, unspecified organism (principal); J18.9 Pneumonia, unspecified organism; F41.9 Anxiety disorder, unspecified; F32.9 Major depressive disorder, single episode, unspecified; J45.909 Unspecified asthma, uncomplicated; Z87.891 Personal history of nicotine dependence